=== PATIENT | female | born 1985 | race African-American/Black ===

== ENCOUNTER 2016-10-27 22:00 | Emergency (ER) | payer OTHER ==
--- NOTE | 2016-10-27 23:38 | DIAGNOSTIC IMAGING REPORT ---
PROCEDURE: XR CHEST 2 VIEW INDICATION: Chest pain. TECHNIQUE: PA and lateral views. COMPARISON: Compared to chest x-ray on 01/06/2015. FINDINGS: Lungs are clear. Heart and mediastinum are normal. Thorax is normal. IMPRESSION: 1. Negative chest.
--- NOTE | 2016-10-28 02:26 | ED ORDER SUMMARY ---
..... Patient: HOMER BROWN OrderSheet [facility] VisitID: [id number] [address] [place] [address] 31y, F Registration Date/Time: 10/27/2016 ORDER SHEET Weight: 113.3 kg (stated) Allergies: Tape, Zoloft GENERAL ORDERS: Recreation Activities Coordinator (Continuous) (CP) (22:02 10/27/2016 Noemy Purdy) (22:17 ASchmuck) Chest 2V Urgent (22:02 10/27/2016 Noemy Purdy) (Ack 22:22 Lacey) (22:27 MCampbell) EKG - ER Stat (22:03 10/27/2016 Noemy Purdy) (22:18 ASchmuck) Pulse oximeter (22:03 10/27/2016 Noemy Purdy) (22:17 ASchmuck) CBC w Diff Urgent (22:45 10/27/2016 Noemy Purdy) (Ack 23:06 Lacey) (23:07 ASchmuck) CMP Urgent (22:45 10/27/2016 Noemy Purdy) (Ack 23:06 Lacey) (23:07 ASchmuck) Troponin-I Urgent (22:45 10/27/2016 Noemy Purdy) (Ack 23:06 Lacey) (23:07 ASchmuck) D-Dimer Urgent (22:45 10/27/2016 Noemy Purdy) (Ack 23:06 Lacey) (23:07 ASchmuck) CTA Thorax w Cont (No) (N/A) Urgent (23:28 10/27/2016 Noemy Purdy) (Ack 23:28 Lacey) (0:19 ASchmuck) Troponin-I (redraw at 0101) Urgent (23:46 10/27/2016 Noemy Purdy) (Ack 0:40 Mayteekumm) (1:02 Coronaegekimana) MEDICATION ORDERS: IV FLUIDS: Morphine IV 4 mg (HIGH ALERT MEDICATION, NOW) (22:45 10/27/2016 Noemy Purdy) (Ack 23:03 ASchmuck) (23:07 ASchmuck) IV Saline Lock (22:45 10/27/2016 Noemy Purdy) (23:03 ASchmuck) Toradol IV 30 mg (NOW) (01:01 10/28/2016 Noemy Purdy) (1:07 ASchmuck) ORDER SHEET NOTES: [Electronically signed by Maylin Real R.N. (02:49 10/28/2016)] [Electronically signed by Darien Dasilva Dr. (08:21 10/29/2016)] [Electronically locked/signed by Maylin Real R.N. (02:49 10/28/2016)]
--- NOTE | 2016-10-28 02:26 | ED CLINICAL REPORT ---
Clinical Report - Physicians/Mid Levels [facility] [address] [place] [place] [address] 10/27/2016 22:00 Patient: HOMER BROWN Time Seen: 2200; initial patient contact. Arrived- By private vehicle. Historian- patient. HISTORY OF PRESENT ILLNESS Chief Complaint: CHEST PAIN. It is described as sharp and it is described as located in the right chest area. No radiation. This started today and is still present (unchanged). It was abrupt in onset and has been constant but is not gone now. Onset during rest. At its maximum, severity described as moderate. When seen in the E.D., severity described as moderate. Modifying factors- worsened by deep breaths. Relieved by rest. (reports it is better with exertion). No nausea, vomiting or diaphoresis. She has had difficulty breathing. No additional chest pain. Similar symptoms previously: None. Recent medical care: Not recently seen/assessed. REVIEW OF SYSTEMS No fever or skin rash. All systems otherwise negative, except as recorded above. PAST HISTORY See nurses notes. Denies the following risk factors for DVT/PE - history of DVT and pulmonary embolism, recent surgery, recent DE and clotting disorder. Denies the following risk factors for DVT/PE - estrogens, obesity, immobility and advanced in age. Medications: Steriod inhaler but pt hasn't been taking it.. Albuterol inhaler prn. Allergies: Tape. Zoloft. ADDITIONAL NOTES The nursing notes have been reviewed. PHYSICAL EXAM Vital Signs: 10/27/2016 22:15 BP: 118/63. HR: 86. RR: 14. O2 saturation: 98%. Temp: 97.9 F. Blood pressure normal. Oxygen saturation normal. Appearance: Alert. Oriented X3. No acute distress. ENT: Ears normal. Nose normal. Pharynx normal. Neck: Normal inspection. Neck supple. No JVD. CVS: Normal heart rate and rhythm. Heart sounds normal. Pulses normal. Respiratory: No respiratory distress. Chest pain reproducible with palpation of the anterior chest wall (right). Breath sounds normal. Chest nontender. No rales, rhonchi or wheezes. Abdomen: Soft and nontender. Bowel sounds normal. Skin: Skin warm and dry. Normal skin color. No rash. Normal skin turgor. Extremities: Extremities exhibit normal ROM. No lower extremity edema. LABS, X-RAYS, AND EKG EKG: Normal sinus rhythm. Normal P waves. Normal KIMO. Normal QRS complex. Normal axis. Normal ST and T waves, QT and QTc. The study has been interpreted contemporaneously. The study has been independently viewed by me. The EKG appears to be a good tracing. Chest X-ray: (PROCEDURE: XR CHEST 2 VIEW INDICATION: Chest pain. TECHNIQUE: PA and lateral views. COMPARISON: Compared to chest x-ray on 01/06/2015. FINDINGS: Lungs are clear. Heart and mediastinum are normal. Thorax is normal. IMPRESSION: 1. Negative chest.). The X-rays were independently viewed by me and interpreted by the radiologist. The X-rays were discussed with the radiologist (via pacs). Chest CT: (TECHNIQUE: 90 ml of Isovue 370 was injected intravenously and axial images were obtained of the entire thorax with 3D sagittal and coronal MIP reconstructions. Preliminary report provided by Oralia Drake MD ([facility]). COMPARISON: Compared to chest x-ray on 10/27/2016. FINDINGS: Minor volume loss at the lung base. Lungs are otherwise clear. Pulmonary vessels are normal and there is no evidence of pulmonary embolus. Heart and mediastinum are normal. Thorax is normal. Preliminary report describes bilateral axillary lymph nodes, although these are considered normal. There is a 5 mm calcified nodule right thyroid gland which is of doubtful significance (degenerating benign adenoma). IMPRESSION: 1. Negative CT pulmonary arteriogram. No evidence of pulmonary embolus. 2. The 5 mm calcified nodule right thyroid gland is of doubtful significance (degenerating benign adenoma). 3. No evidence of axillary adenopathy (as suggested on preliminary report).). The study was independently viewed by me and interpreted by the radiologist. The study was discussed with the radiologist (via pacs and phone). Laboratory Tests: Troponin-I: (CAROLYN: 10/28/2016 01:01) ( MsgRcvd 10/28/2016 01:29) Final results Test Result Flag Units (Reference) TROPONIN I <0.05 L ng/mL (0.00-1.5) TROPONIN REFERENCE RANGE:<0.1 NEGATIVE0.1-1.5 INDETERMINANT>1.5 POSITIVE CBC w Diff: (CAROLYN: 10/27/2016 23:01) ( [facility] 10/27/2016 23:06) Final results Test Result Flag Units (Reference) WHITE BLOOD COUNT 10.1 K/uL (4.5-11.5) RED BLOOD COUNT 3.83 L M/uL (4.00-5.20) HEMOGLOBIN 11.5 L gm/dL (12.0-16.0) HEMATOCRIT 33.7 L % (36.0-46.0) MEAN CELL VOLUME 88 fL (80-100) MEAN CORPUSCULAR HGB 30 pg (26-34) MEAN CORPUSCULAR HGB CONC 34 g/dL (31-37) RED CELL DISTRIBUTION WIDTH 13.2 % (11.6-14.8) PLATELET COUNT 417 H K/uL (150-400) LYMPH % 34.2 % (25-40) MONO % 1.5 L % (3-14) GRANULOCYTE % 64.3 % (53-90) [id number]: (CAROLYN: 10/27/2016 23:01) ( [facility] 10/27/2016 23:17) Final results Test Result Flag Units (Reference) D-DIMER QUANTITATIVE 0.57 H ug/mLFEU (0.27-0.52) The primary value of this quantitative assay relates toits negative predictive value (i.e. exclusion) of pulmonaryembolism/deep vein thrombosis/DIC.Elevated levels of d-dimer may also occur with:, age, cancer, inflammation, liver disease,post-op, infection, hematoma, coronary disease, peripheralarteriopathy, bleeding disorders and thrombolytic treatment.Results should be correlated with other clinical andradiological data.Testing Methodology: Latex Immunoassay CMP: (CAROLYN: 10/27/2016 23:01) ( [facility] 10/27/2016 23:22) Final results Test Result Flag Units (Reference) GLUCOSE 106 mg/dL (70-110) BUN 14 mg/dL (7-18) CREATININE 0.6 mg/dL (0.6-1.3) Estimated GFR >60 mL/min Estimated GFR- >60 mL/min Note: Persistent reduction over 3 months in eGFR<60 mL/min/1.73 m2 defines CKD. Patients with eGFR values>=60 mL/min/1.73 m2 may also have CKD if evidence ofpersistent proteinuria. Additional information may be foundat www.kidney.org. SODIUM 141 mmol/L (136-145) POTASSIUM 4.5 mmol/L (3.5-5.1) CHLORIDE 105 mmol/L (98-107) CARBON DIOXIDE 27 mmol/L (21-32) CALCIUM 8.9 mg/dL (8.5-10.1) TOTAL PROTEIN 7.6 g/dL (6.4-8.2) ALBUMIN 3.6 g/dL (3.3-5.0) BILIRUBIN, TOTAL 0.3 mg/dL (0.0-1.0) ALKALINE PHOSPHATASE 78 U/L (46-116) AST (SGOT) 28 U/L (15-37) ALT (SGPT) 38 U/L (12-78) TROPONIN I <0.05 L ng/mL (0.00-1.5) TROPONIN REFERENCE RANGE:<0.1 NEGATIVE0.1-1.5 INDETERMINANT>1.5 POSITIVE . PROGRESS AND PROCEDURES Course of Care: The patient is a 31 yo female presenting for right sided chest pain. Patient non-toxic. Differential includes PE, AMI, pneumonia, pleuricy, or chest wall pain. Patient with reproducible pain. Work up ordered. Patient agreeabe to treatment and plan. Trop negative. D-dimer elevated. CTA ordered. CTA negative. Symptoms improved. Work up otherwise negative. Discussed with patient their work up in the ED, diagnosis, home care, follow up and return precautions. All questions answered. Patient expressed understanding of these instructions and was agreeable to them. Disposition: Discharged. Condition: good. CLINICAL IMPRESSION 10/28/2016 01:15 BP: 119/55. HR: 86. RR: 15. O2 saturation: 96%. Blood pressure normal. Oxygen saturation normal. Atypical chest pain .12 lead EKG performed. (acute left sided). thyroid nodule, incidental finding. INSTRUCTIONS Warnings: Further evaluation is necessary in order to conduct further tests (recheck chest pain and follow up for thyroid nodule). It is very important to follow up with a physician. Your Current Medications: CONTINUE TAKING THE FOLLOWING MEDICATIONS: Albuterol inhaler prn*. Steriod inhaler but pt hasn't been taking it.*. Follow-up: Return to the emergency department as needed. Follow up with your doctor in three days. Reason for referral: recheck today's concerns. Summary of care provided to patient via paper. Screening today revealed the patient's blood pressure to be in the normal range. The patient should follow up with a primary care provider for blood pressure management. Understanding of the discharge instructions verbalized by patient. (Electronically signed by Darien Dasilva Dr. 10/29/2016 8:21)
--- NOTE | 2016-10-28 02:26 | ED ORDER SUMMARY ---
..... Patient: HOMER BROWN OrderSheet [facility] VisitID: [id number] [address] [place] [address] 31y, F Registration Date/Time: 10/27/2016 ORDER SHEET Weight: 113.3 kg (stated) Allergies: Tape, Zoloft GENERAL ORDERS: Senior [employer] Developer (Continuous) (CP) (22:02 10/27/2016 Noemy Purdy) (22:17 ASchmuck) Chest 2V Urgent (22:02 10/27/2016 Noemy Purdy) (Ack 22:22 Lacey) (22:27 MCampbell) EKG - ER Stat (22:03 10/27/2016 Noemy Purdy) (22:18 ASchmuck) Pulse oximeter (22:03 10/27/2016 Noemy Purdy) (22:17 ASchmuck) CBC w Diff Urgent (22:45 10/27/2016 Noemy Purdy) (Ack 23:06 Lacey) (23:07 ASchmuck) CMP Urgent (22:45 10/27/2016 Noemy Purdy) (Ack 23:06 Lacey) (23:07 ASchmuck) Troponin-I Urgent (22:45 10/27/2016 Noemy Purdy) (Ack 23:06 Lacey) (23:07 ASchmuck) D-Dimer Urgent (22:45 10/27/2016 Noemy Purdy) (Ack 23:06 Lacey) (23:07 ASchmuck) CTA Thorax w Cont (No) (N/A) Urgent (23:28 10/27/2016 Noemy Purdy) (Ack 23:28 Lacey) (0:19 ASchmuck) Troponin-I (redraw at 0101) Urgent (23:46 10/27/2016 Noemy Purdy) (Ack 0:40 Mayteekumm) (1:02 Coronaegekimana) MEDICATION ORDERS: IV FLUIDS: Morphine IV 4 mg (HIGH ALERT MEDICATION, NOW) (22:45 10/27/2016 Noemy Purdy) (Ack 23:03 ASchmuck) (23:07 ASchmuck) IV Saline Lock (22:45 10/27/2016 Noemy Purdy) (23:03 ASchmuck) Toradol IV 30 mg (NOW) (01:01 10/28/2016 Noemy Purdy) (1:07 ASchmuck) ORDER SHEET NOTES: [Electronically signed by Maylin Real R.N. (02:49 10/28/2016)] [Electronically signed by Darien Dasilva Dr. (08:21 10/29/2016)] [Electronically locked/signed by Maylin Real R.N. (02:49 10/28/2016)]
--- NOTE | 2016-10-28 02:26 | ED NURSING NOTES ---
Clinical Report - Nurses [facility] [address] [place] [address] 10/27/2016 22:00 Patient: HOMER BROWN TRIAGE Triage time 22:Oct 27 2016. Acuity: LEVEL 3. Chief Complaint: CHEST PAIN and LEFT ARM PAIN. 22:15 10/27/16. Alert. No acute distress. SEPSIS SCREEN: Sepsis Screen. Negative (no infection suspected/documented). GINO COMA SCORE: Beverly Coma Scale: 15- eyes open spontaneously (4); best verbal response- oriented x 4 (5); best motor response- obeys commands (6). --22:15 Odette Alvarez 22:15 10/27/16. BP: 118/63. HR: 86. RR: 14. O2 saturation: 98%. Temp: 97.9 F. Pain level now 6/10. --22:15 Odette Alvarez. Weight: 113.3 kg stated. Height/Length: 60 inches Per Patient. BMI: 48.8. --22:12 Odette Alvarez. Medications Albuterol inhaler prn. --22:11 Odette Alavrez Steriod inhaler but pt hasn't been taking it.. --22:11 Odette Alvarez. Medication/allergy information source: the patient. --22:15 Odette Alvarez. Allergies Tape. Zoloft. --22:12 Odette Alvarez. History Arrived by private vehicle. Historian: patient. Accompanied by mother. Primary physician ([facility]-). This started just prior to arrival. Describes the quality as pressure, sharp. Relates location as in the left chest area and left shoulder. Notes pain level as 6/10 on arrival and 8/10 at maximum. ( Pt reports pain in her chest that is a mix between pressure and sharp pain. States that she has been to the ER multiple times frequently for CP, but before she also had SOB. States that prior EKGs have been normal. Pt denies other history of cardiac problems. Father has cardiac issue, but patient is unsure of what.). The patient has had nausea and nausea. No difficulty breathing, sweating episodes, vomiting, fever or cough. No difficulty breathing or vomiting. Treatment HOT MAN: None. PAST MEDICAL HX: Diabetes mellitus (borderline gestational diabetes). No history of hypertension, heart disease or lung disease. Immunizations: up-to-date. The patient has had a hysterectomy. Denies current . SOCIAL HX: Never smoker. Occasional alcohol use. No drug use. FALL RISK ASSESSMENT: Fall risk assessment completed. No fall risk identified. NUTRITIONAL RISK ASSESSMENT: The nutritional risk assessment revealed no deficiencies. FUNCTIONAL ASSESSMENT: Functional assessment: no impairments noted. LEARNING NEEDS ASSESSMENT: The learning needs assessment revealed no barriers. SKIN INTEGRITY ASSESSMENT: Skin integrity risk assessment completed. No skin integrity risk identified. --22:15 Odette Alvarez. PROBLEMS: Asthma. Breast Mass. Plantar Puncture Wound. Contusion. Cystitis. Abdominal Pain. Gallstone(s). Vaginal Bleeding. Viral Disease. Anemia. Dysfunctional Uterine Bleeding. Ovarian Cyst. Sprain. Depression. --22:12 Odette Alvarez. ADDITIONAL SURGERIES: Appendectomy. Cholecystectomy. . Dental Surgery. Eye. Hysterectomy. Previous Abdominal Surgery. Tubal Ligation. [place] teeth. --22:12 Odette Alvarez. Assessment The patient states feels the same. --22:15 Odette Alvarez. Interventions ID band on patient. --22:15 Odette Alvarez. PHYSICAL ASSESSMENT 22:16 10/27/16. Ambulatory to room. Patient gowned. GENERAL / NEURO / PSYCH: Alert. Oriented X 4. Appears in no acute distress. HEENT: Mucous membranes are pink. RESPIRATORY: Respirations not labored. Chest pain reproducible with deep breathing (with external pressure.). Chest wall tenderness. CVS: Normal sinus rhythm noted. Pulses within normal limits. Capillary refill less than 2 seconds. GI / : Abdomen soft and nontender. EXTREMITIES: No lower extremity edema. SKIN: Skin is warm and dry. Normal skin turgor. Skin is non-tender. --22:16 Odette Alvarez. NURSING PROGRESS NOTES 22:16 10/27/16. The plan of care for this patient has been created. jail guard, pulse oximeter and NIBP monitor placed on patient; food scientist- Lead II and V5; monitor alarms on. Patient gowned. Head of bed elevated. Reassurance given. Two patient identifiers checked. Call light placed in reach. Side rails up x 1. Bed placed in lowest position. Brakes of bed on. Patient ready for evaluation- chart flagged and ED physician notified. --22:16 Odette Alvarez 22:18 10/27/16. EKG time: (22:18). EKG was ordered, performed by a tech and shown to the ED physician. --22:18 Odette Alvarez 23:02 10/27/2016 Site #1 started via IV in the right hand with an 20g angiocath, with aseptic technique and good blood return; one attempt. Blood drawn: rainbow set. Labeled in the presence of the patient and sent to the lab. Saline lock flushed with 10 mL saline. --23:02 Odette Alvarez 23:10/27/2016 Morphine IVP 4 mg given over 30 second(s) via site #1. Allergies verified, confirmed 5 rights and sedative warning given to the patient. IV patency established. IV site checked: no pain, redness, or swelling. IV flushed thoroughly pre- and post-medication administration. IVP given by RN. --23:07 Odette Alvarez 23:51 10/27/2016 Site #1 removed. Catheter intact. Pressure dressing applied. --23:51 Odette Alvarez 23:51 10/27/2016 Site #2 started via IV in the left antecubital space with an 18g angiocath, with aseptic technique and good blood return. --23:51 Odette Alvarez 00:04 10/28/16. Patient transported to CT by stretcher with tech. --00:04 Odette Alvarez 23:50 10/27/16. BP: 122/62. HR: 86. RR: 17. O2 saturation: 97% on room air. 22:50 10/27/16. BP: 114/53. HR: 88. RR: 16. O2 saturation: 97%. --00:11 Odette Alvarez 00:18 10/28/16. Patient returned from radiology by stretcher with tech. --00:18 Odette Alvarez 01:07 10/28/2016 Toradol IVP 30 mg given over 1 minute(s) via site #2. Allergies verified and confirmed 5 rights. IV patency established. IV site checked: no pain, redness, or swelling. IV flushed thoroughly pre- and post-medication administration. IVP given by RN. --01:07 Odette Alvarez Care transferred and report received. --01:12 Maylin Real R.N. 01:13 10/28/16. Care transferred and report given (Maylin, RN). --01:13 Odette Alvarez 01:15 10/28/16. BP: 119/55. HR: 86. RR: 15. O2 saturation: 96% on room air. --01:16 Odette Alvarez ( Ice water and gatorade given, per pt request for something to drink.). --01:16 Maylin Real R.N. DISPOSITION / DISCHARGE 02:45 10/28/16. BP: 109/44. HR: 94. RR: 16. O2 saturation: 100% on room air. Temp: deferred. Salomon-Taylor pain scale: 4/10. --02:48 Maylin Real R.N. 02:40 10/28/2016 Site #2 removed upon discharge. Catheter intact. Manual pressure and bandage applied. --02:48 Maylin Real R.N. Condition at departure: stable. No learning barriers present. Discharge instructions provided and reviewed with the patient. Patient verbalized understanding. Written instructions provided in Comoran. The patient was discharged home and accompanied by flotation operator. She left the Emergency Department ambulatory and via private vehicle. Hyperion Analyst driving. --02:48 Maylin Real R.N. Locked/Released at 10/28/2016 2:49 by Maylin Real R.N.
--- NOTE | 2016-10-28 02:26 | ED NURSING NOTES ---
Clinical Report - Nurses [facility] [address] [place] [address] 10/27/2016 22:00 Patient: HOMER BROWN TRIAGE Triage time 22:Oct 27 2016. Acuity: LEVEL 3. Chief Complaint: CHEST PAIN and LEFT ARM PAIN. 22:15 10/27/16. Alert. No acute distress. SEPSIS SCREEN: Sepsis Screen. Negative (no infection suspected/documented). GINO COMA SCORE: [place] Coma Scale: 15- eyes open spontaneously (4); best verbal response- oriented x 4 (5); best motor response- obeys commands (6). --22:15 Odette Alvarez 22:15 10/27/16. BP: 118/63. HR: 86. RR: 14. O2 saturation: 98%. Temp: 97.9 F. Pain level now 6/10. --22:15 Odette Alvarez. Weight: 113.3 kg stated. Height/Length: 60 inches Per Patient. BMI: 48.8. --22:12 Odette Alvarez. Medications Albuterol inhaler prn. --22:11 Odette Alvarez Steriod inhaler but pt hasn't been taking it.. --22:11 Odette Alvarez. Medication/allergy information source: the patient. --22:15 Odette Alvarez. Allergies Tape. Zoloft. --22:12 Odette Alvarez. History Arrived by private vehicle. Historian: patient. Accompanied by mother. Primary physician ([facility]). This started just prior to arrival. Describes the quality as pressure, sharp. Relates location as in the left chest area and left shoulder. Notes pain level as 6/10 on arrival and 8/10 at maximum. ( Pt reports pain in her chest that is a mix between pressure and sharp pain. States that she has been to the ER multiple times frequently for CP, but before she also had SOB. States that prior EKGs have been normal. Pt denies other history of cardiac problems. Father has cardiac issue, but patient is unsure of what.). The patient has had nausea and nausea. No difficulty breathing, sweating episodes, vomiting, fever or cough. No difficulty breathing or vomiting. Treatment MEDICAL SUPERVISOR: None. PAST MEDICAL HX: Diabetes mellitus (borderline gestational diabetes). No history of hypertension, heart disease or lung disease. Immunizations: up-to-date. The patient has had a hysterectomy. Denies current . SOCIAL HX: Never smoker. Occasional alcohol use. No drug use. FALL RISK ASSESSMENT: Fall risk assessment completed. No fall risk identified. NUTRITIONAL RISK ASSESSMENT: The nutritional risk assessment revealed no deficiencies. FUNCTIONAL ASSESSMENT: Functional assessment: no impairments noted. LEARNING NEEDS ASSESSMENT: The learning needs assessment revealed no barriers. SKIN INTEGRITY ASSESSMENT: Skin integrity risk assessment completed. No skin integrity risk identified. --22:15 Odette Alvarez. PROBLEMS: Asthma. Breast Mass. Plantar Puncture Wound. Contusion. Cystitis. Abdominal Pain. Gallstone(s). Vaginal Bleeding. Viral Disease. Anemia. Dysfunctional Uterine Bleeding. Ovarian Cyst. Sprain. Depression. --22:12 Odette Alvarez. ADDITIONAL SURGERIES: Appendectomy. Cholecystectomy. . Dental Surgery. Eye. Hysterectomy. Previous Abdominal Surgery. Tubal Ligation. [place] teeth. --22:12 Odette Alvarez. Assessment The patient states feels the same. --22:15 Odette Alvarez. Interventions ID band on patient. --22:15 Odette Alvarez. PHYSICAL ASSESSMENT 22:16 10/27/16. Ambulatory to room. Patient gowned. GENERAL / NEURO / PSYCH: Alert. Oriented X 4. Appears in no acute distress. HEENT: Mucous membranes are pink. RESPIRATORY: Respirations not labored. Chest pain reproducible with deep breathing (with external pressure.). Chest wall tenderness. CVS: Normal sinus rhythm noted. Pulses within normal limits. Capillary refill less than 2 seconds. GI / : Abdomen soft and nontender. EXTREMITIES: No lower extremity edema. SKIN: Skin is warm and dry. Normal skin turgor. Skin is non-tender. --22:16 Odette Alvarez. NURSING PROGRESS NOTES 22:16 10/27/16. The plan of care for this patient has been created. mold insert changer, pulse oximeter and NIBP monitor placed on patient; cardiac cath rn- Lead II and V5; monitor alarms on. Patient gowned. Head of bed elevated. Reassurance given. Two patient identifiers checked. Call light placed in reach. Side rails up x 1. Bed placed in lowest position. Brakes of bed on. Patient ready for evaluation- chart flagged and ED physician notified. --22:16 Odette Alvarez 22:18 10/27/16. EKG time: (22:18). EKG was ordered, performed by a tech and shown to the ED physician. --22:18 Odette Alvarez 23:02 10/27/2016 Site #1 started via IV in the right hand with an 20g angiocath, with aseptic technique and good blood return; one attempt. Blood drawn: rainbow set. Labeled in the presence of the patient and sent to the lab. Saline lock flushed with 10 mL saline. --23:02 Odette Alvarez 23:10/27/2016 Morphine IVP 4 mg given over 30 second(s) via site #1. Allergies verified, confirmed 5 rights and sedative warning given to the patient. IV patency established. IV site checked: no pain, redness, or swelling. IV flushed thoroughly pre- and post-medication administration. IVP given by RN. --23:07 Odette Alvarez 23:51 10/27/2016 Site #1 removed. Catheter intact. Pressure dressing applied. --23:51 Odette Alvarez 23:51 10/27/2016 Site #2 started via IV in the left antecubital space with an 18g angiocath, with aseptic technique and good blood return. --23:51 Odette Alvarez 00:04 10/28/16. Patient transported to CT by stretcher with tech. --00:04 Odette Alvarez 23:50 10/27/16. BP: 122/62. HR: 86. RR: 17. O2 saturation: 97% on room air. 22:50 10/27/16. BP: 114/53. HR: 88. RR: 16. O2 saturation: 97%. --00:11 Odette Alvarez 00:18 10/28/16. Patient returned from radiology by stretcher with tech. --00:18 Odette Alvarez 01:07 10/28/2016 Toradol IVP 30 mg given over 1 minute(s) via site #2. Allergies verified and confirmed 5 rights. IV patency established. IV site checked: no pain, redness, or swelling. IV flushed thoroughly pre- and post-medication administration. IVP given by RN. --01:07 Odette Alvarez Care transferred and report received. --01:12 Maylin Real R.N. 01:13 10/28/16. Care transferred and report given (Maylin, RN). --01:13 Odette Alvarez 01:15 10/28/16. BP: 119/55. HR: 86. RR: 15. O2 saturation: 96% on room air. --01:16 Odette Alvarez ( Ice water and gatorade given, per pt request for something to drink.). --01:16 Maylin Real R.N. DISPOSITION / DISCHARGE 02:45 10/28/16. BP: 109/44. HR: 94. RR: 16. O2 saturation: 100% on room air. Temp: deferred. Salomon-Taylor pain scale: 4/10. --02:48 Maylin Real R.N. 02:40 10/28/2016 Site #2 removed upon discharge. Catheter intact. Manual pressure and bandage applied. --02:48 Maylin Real R.N. Condition at departure: stable. No learning barriers present. Discharge instructions provided and reviewed with the patient. Patient verbalized understanding. Written instructions provided in [place]. The patient was discharged home and accompanied by software test technician. She left the Emergency Department ambulatory and via private vehicle. Tail Ripper driving. --02:48 Maylin Real R.N. Locked/Released at 10/28/2016 2:49 by Maylin Real R.N.
--- NOTE | 2016-10-28 07:21 | DIAGNOSTIC IMAGING REPORT ---
PROCEDURE: CTA THORAX WITH CONTRAST INDICATION: Left chest pain. Elevated D-dimer (0.57). TECHNIQUE: 90 ml of Isovue 370 was injected intravenously and axial images were obtained of the entire thorax with 3D sagittal and coronal MIP reconstructions. Preliminary report provided by Oralia Drake MD ([facility]). COMPARISON: Compared to chest x-ray on 10/27/2016. FINDINGS: Minor volume loss at the lung base. Lungs are otherwise clear. Pulmonary vessels are normal and there is no evidence of pulmonary embolus. Heart and mediastinum are normal. Thorax is normal. Preliminary report describes bilateral axillary lymph nodes, although these are considered normal. There is a 5 mm calcified nodule right thyroid gland which is of doubtful significance (degenerating benign adenoma). IMPRESSION: 1. Negative CT pulmonary arteriogram. No evidence of pulmonary embolus. 2. The 5 mm calcified nodule right thyroid gland is of doubtful significance (degenerating benign adenoma). 3. No evidence of axillary adenopathy (as suggested on preliminary report). 4. Fine discussed with Dr. Darien Dasilva. All CT scans at this facility use dose modulation, iterative reconstruction, and/or weight-based dosing when appropriate to reduce radiation dose to as low as reasonably achievable.
--- NOTE | 2016-10-29 08:21 | ED MAR SUMMARY ---
..... Medication Administration Record [facility] [address] [place] [address] Patient: HOMER BROWN Visit ID: [id number] 31y, F Weight: 113.3 kg Height/Length: 60 in BMI: 48.8 ALLERGIES: Tape, Zoloft Given 23:07 10/27/2016 Odette Alvarez, Medication Administered: MORPHINE [IVP], Dose: 4 mg IVP over 30 second(s), Site: #1 right hand. Medication Ordered: Morphine IV 4 mg (HIGH ALERT MEDICATION, NOW). Given 01:07 10/28/2016 Odette Alvarez, Medication Administered: TORADOL [IVP], Dose: 30 mg IVP over 1 minute(s), Site: #2 left AC. Medication Ordered: Toradol IV 30 mg (NOW).
--- NOTE | 2016-10-29 08:21 | ED MAR SUMMARY ---
..... Medication Administration Record [facility] [address] [place] [address] Patient: HOMER BROWN Visit ID: [id number] 31y, F Weight: 113.3 kg Height/Length: 60 in BMI: 48.8 ALLERGIES: Tape, Zoloft Given 23:07 10/27/2016 Odette Alvarez, Medication Administered: MORPHINE [IVP], Dose: 4 mg IVP over 30 second(s), Site: #1 right hand. Medication Ordered: Morphine IV 4 mg (HIGH ALERT MEDICATION, NOW). Given 01:07 10/28/2016 Odette Alvarez, Medication Administered: TORADOL [IVP], Dose: 30 mg IVP over 1 minute(s), Site: #2 left AC. Medication Ordered: Toradol IV 30 mg (NOW).
--- NOTE | 2016-10-29 08:21 | ED MED RECONCILIATION SUMMARY ---
Patient: HOMER BROWN Medication Reconciliation Report [facility] VisitID: [id number] [address] [place] [address] 31y, F Registration Date/Time: 10/27/2016 Weight: 113.3 kg Height/Length: 60 in. BMI: 48.8 ALLERGIES: Tape, Zoloft The patient's Home Medications are listed below: CONTINUE TAKING THE FOLLOWING MEDICATIONS: Albuterol inhaler prn Steriod inhaler but pt hasn't been taking it. The source(s) of the original Home Medication information: patient The following Medications were given to the patient in the Emergency Department: Morphine [IVP] IVP 4 mg, administered: 10/27/2016 11:07:00 PM Toradol [IVP] IVP 30 mg, administered: 10/28/2016 1:07:00 AM The following Medications were prescribed to the patient: None.
--- NOTE | 2016-10-29 08:21 | ED MED RECONCILIATION SUMMARY ---
Patient: HOMER BROWN Medication Reconciliation Report [facility] VisitID: [id number] [address] [place] [address] 31y, F Registration Date/Time: 10/27/2016 Weight: 113.3 kg Height/Length: 60 in. BMI: 48.8 ALLERGIES: Tape, Zoloft The patient's Home Medications are listed below: CONTINUE TAKING THE FOLLOWING MEDICATIONS: Albuterol inhaler prn Steriod inhaler but pt hasn't been taking it. The source(s) of the original Home Medication information: patient The following Medications were given to the patient in the Emergency Department: Morphine [IVP] IVP 4 mg, administered: 10/27/2016 11:07:00 PM Toradol [IVP] IVP 30 mg, administered: 10/28/2016 1:07:00 AM The following Medications were prescribed to the patient: None.
--- NOTE | 2016-10-29 08:21 | ED DISCHARGE INSTRUCTIONS ---
Patient: HOMER BROWN General Instructions [facility] VisitID: [id number] [address] [place] [address] 31y, F Registration Date/Time: 10/27/2016 10/28/2016 01:15 BP: 119/55. HR: 86. RR: 15. O2 saturation: 96%. Blood pressure normal. Oxygen saturation normal. Atypical chest pain .12 lead EKG performed. (acute left sided). thyroid nodule, incidental finding. INSTRUCTIONS Warnings: Further evaluation is necessary in order to conduct further tests (recheck chest pain and follow up for thyroid nodule). It is very important to follow up with a physician. Your Current Medications: CONTINUE TAKING THE FOLLOWING MEDICATIONS: Albuterol inhaler prn*. Steriod inhaler but pt hasn't been taking it.*. Follow-up: Return to the emergency department as needed. Follow up with your doctor in three days. Reason for referral: recheck today's concerns. Summary of care provided to patient via paper. Screening today revealed the patient's blood pressure to be in the normal range. The patient should follow up with a primary care provider for blood pressure management. Understanding of the discharge instructions verbalized by patient. ADDITIONAL INFORMATION Chest Pain, Uncertain Cause Chest pain can happen for a number of reasons. Sometimes the cause can not be determined. If yourcondition does not seem serious, and your pain does not appear to be coming from your heart, your doctor may recommend watching it closely. Sometimes the signs of a serious problem take more time to appear. Therefore, watch for the warning signs listed below. Home care After your visit, follow these recommendations: Rest today and avoid strenuous activity. Take any prescribed medicine as directed. Follow-up care Follow up with your doctor or this facility as instructed or if you do not start to feel better within 24 hours. Call 911 Get immediate medical attention if any of the following occur: A change in the type of pain: if it feels different, becomes more severe, lasts longer, or begins to spread into your shoulder, arm, neck, jaw or back Shortness of breath or increased pain with breathing Weakness, dizziness, or fainting Rapid heart beat Get prompt medical attention Call your doctor right away if any of the following occur: Cough with dark colored sputum (phlegm) or blood Fever of 100.4F(38C) or higher, or as directed by your health care provider Swelling, pain or redness in one leg You have been given the following additional information: Chest Pain, Uncertain Cause (Electronically signed by Darien Dasilva Dr. 10/29/2016 8:21)
== END 2016-10-28 02:45 | disposition home or self-care (01) ==
LOC: ED SRH 22:00
DX: R07.89 Other chest pain (principal); E04.1 Nontoxic single thyroid nodule
CPT/HCPCS: 90074; 90100; 90616; 91556; 95059